=== PATIENT | male | born 1970 | race Caucasian/White ===

== ENCOUNTER 2019-10-23 08:30 | Outpatient (RCR) | payer BC, SELFPAY ==
[2019-09-23 14:52] VITALS: BP_SYST 140
--- NOTE | 2019-09-23 16:02 | PTOPEVAL ---
Thank you for referring this patient to [facility]. Please review, sign, date and return this plan of care NISH. Daniele seen for initial evaluation due to right shoulder pain. He requires additional skilled therapy to address increased pain, decreased shoulder strength and range and limited UE function with daily activities. Cont PT 2x/wk x 6 wk to improved impairments. I agree with and certify that the following plan of care is medically necessary. Referring Physician Date Attending Provider: Vipul Williamson MD Referring Provider: *PT Outpatient Evaluation Start: 09/23/19 14:49 Freq: Status: Active Protocol: Document 09/23/19 14:52 CAP (Rec: 09/23/19 15:59 CAP [email or web address]) Therapy Assessment Status Assessment Status Assessment Status Evaluation Outpatient Past Medical History Past Medical History Past Medical History Status Patient Denies Significant Past Medical History Evaluation Information Problem Diagnosis right shoulder pain Onset 08/13/19 Cause unknown injury Subjective Information Pt reports his shoulder Query Text:As Reported By Patient/ started bothering him at the Family start of the year. He reports increased shoulder pain when working. 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 Report right upper arm pain. REports difficulty with donning clothes, reaching overhead and reaching behind back. Reports he usually sleeps on left side, but if he sleeps on right side has increased soreness of right UE . He has previous therapy on his shoulder 10 year ago for RCT. He was able to improve range and strength without the need for surgery. Diagnostic Tests X-Rays For This Problem No Previous Treatments Previous Treatments For This Problem 10 years Prior Level of Function Activity Level (Last 3 Months) Hand Dominance Right Activity of Daily Living Ability Independent Indoor/Home Mobility Independent Community Mobility Independent Stairs Ability Independent Cooking No Cleaning No Almanzar
[2019-10-23 08:28] VITALS: BP_SYST 180
--- NOTE | 2019-10-23 08:55 | PTOPEVAL ---
Thank you for referring this patient to [facility]. Please review, sign, date and return this plan of care NISH. Pt was seen at our facility for 9 visits from 09/23/19-10/23/19 to address his right shoulder impairment. He has improved with shoulder motion, strength and UE function with daily activities. He has achieved most of his therapy goals. DC skilled therapy at this time with pt to continue with HEP. I agree with and certify that the following plan of care is medically necessary. Referring Physician Date Attending Provider: Vipul Williamson MD Referring Provider: *PT Outpatient Re-Evaluation/Discharge Start: 09/23/19 14:49 Freq: Status: Active Protocol: Document 10/23/19 08:28 CAP (Rec: 10/23/19 08:55 CAP [email or web address]) Outpatient Past Medical History Past Medical History Past Medical History Status Patient Denies Significant Past Medical History Evaluation Information Problem Diagnosis right shoulder pain Onset 08/13/19 Cause unknown injury Subjective Information Denies any pain with lifting Query Text:As Reported By Patient/ activities. Denies any Family problems with shoveling, lifting or increase UE force activities with [employer]. Reports improved ability to reach in all directions and donning/doffing clothes. Reports improve motion of the shoulder for reaching. Intermittent discomfort with sleeping depending on the right UE position. He is more aware of his posture with work activities and sitting. He changes his desk chair to assist with his shoulder position. Denies any problems with his HEP. Pain Assessment Timing of Pain Assessment Timing of Pain Assessment Re-assessment Pain Scale Pain Scale Used Numeric (1 - 10) Self Report Pain Assessment Right Shoulder(s) Reported Pain Level 0 Pain Description Soreness Pain Frequency Intermittent Current Pain Intensity 0 Greatest Pain Intensity 3 Pain Behaviors None Pain Score Pain Score 0: Self Report Upper Extremity Range of Motion Scapular/ Shoulder Range of Motion Right Scapular: Retraction Normal Scapular: Protraction Normal Scapular Downward Rotation Normal Scapular Upward Rotation
== END 2019-10-23 10:04 | disposition home or self-care (01) ==
LOC: ANHPT 08:30
PROVIDERS: PCP Family Medicine; Visit Provider Family Medicine
DX: M25.511 Pain in right shoulder (principal)
CPT/HCPCS: 97110; 97140; 97162

== ENCOUNTER 2019-10-29 00:55 | Day surgery (SDC) | payer BC, SELFPAY ==
[2019-10-24 11:00] VITALS: BMI 23.1
[2019-10-29] MEDS: LACTATED RINGERS 1,000 ML 150 ML IV CONT (08:55)
[2019-10-29 09:08] VITALS: BMI 22.6
[2019-10-29 09:10] VITALS: BP 114/77; PULSE 79; RESP 16; TEMP 36.8; O2SAT 98
--- NOTE | 2019-10-29 09:25 | WPDANESEPPF ---
Anes - Initial Pre Proc Eval Procedure: Operation Date: 10/29/19 09:30 Proposed Procedures p Screening Colonoscopy - Ezio Aguilar MD Date/Time: 10/29/19 09:25 Surgeon: Ezio Aguilar MD Pre Op Diagnosis: Neoplasm Screening Patient Data Age: 49 Gender: M Height: 6 ft 1 in Weight: 77.9 kg Last Vital Signs Temp 98.2 F 10/29/19 09:10 Pulse 79 10/29/19 09:10 Resp 16 10/29/19 09:10 BP 114/77 10/29/19 09:10 Pulse Ox 98 10/29/19 09:10 Allergies Allergy/AdvReac Type Severity Reaction Status Date / Time ibuprofen Allergy Unknown Nausea Verified 10/29/19 09:07 Home Medications Medication Instructions Recorded Confirmed Type No Home Medications 09/09/19 10/24/19 History Patient hx anesthesia problems: none Family hx anesthesia problems: none PMFSH Social History Social History Smoking status: Never smoker Alcohol intake: current Anes - Eval Final PreProcedure Day of Procedure 10/29/19 09:25 Patient weight: normal Heart: regular rate and rhythm Lungs: clear to auscultation Airway: Mallampati scale class II Neurological: alert and oriented Last oral intake: >/= 8 hours ASA classification: II Emergent: no Anesthetic plan: proceed Anesthesia type and monitoring: general GIVS and standard monitoring Informed Consent: The patient's anesthetic plan and its attendant risks and benefits were discussed with the patient/family/POA. Questions were solicited and answers provided to the satisfaction of the patient/family/POA.
[2019-10-29 09:52] VITALS: BP 99/67; PULSE 64; RESP 20; O2SAT 100
[2019-10-29 10:02] VITALS: BP 112/81; PULSE 76; RESP 18; O2SAT 100
[2019-10-29 10:12] VITALS: BP 115/82; PULSE 67; RESP 16; O2SAT 100
--- NOTE | 2019-10-31 10:16 | P.HP_ITS ---
History of Present Illness History of Present Illness Consent: Risks, benefits, and alternatives have been discussed and questions answered. Patient agrees to proceed with procedure. Chief complaint: Neoplasm Screening Narrative: Daniele Dahl is a 49 year old male referred for screening colonoscopy. [facility] Past Medical History Medical History Migraine, unspecified, not intractable, without status migrainosus Family History Family History Other Diabetes mellitus Family history of malignant neoplasm Hypertension Social History Social History Smoking status: Never smoker Alcohol intake: current Meds Home Medications and Allergies Home Medications Medication Instructions Recorded Confirmed Type No Home Medications 09/09/19 10/24/19 History Allergies Allergy/AdvReac Type Severity Reaction Status Date / Time ibuprofen Allergy Unknown Nausea Verified 10/29/19 09:07 Exam Resp: Auscultation: clear to auscultation bilaterally Cardio: Rate: regular rate Rhythm: regular rhythm GI: GI Palp: Yes Soft to palpation and No Tenderness to palpation present (GI) Assessment and Plan Assessment and plan (1) Screen for colon cancer: Code(s): Z12.11 - Encounter for screening for malignant neoplasm of colon Status: Acute Assessment and Plan: Colonoscopy with possible biopsy or polypectomy or cautery or injection of substances.
== END 2019-10-29 10:17 | disposition home or self-care (01) ==
PROVIDERS: PCP Family Medicine; Visit Provider Internal Medicine Gastroenterology
PROC: 0DJD8ZZ Inspection of Lower Intestinal Tract, Via Natural or Artificial Opening Endoscopic (ICD-10-PCS; CPT 45378; principal; 2019-10-29 09:30)
DX: Z12.11 Encounter for screening for malignant neoplasm of colon (principal); D12.8 Benign neoplasm of rectum; K57.30 Diverticulosis of large intestine without perforation or abscess without bleeding
CPT/HCPCS: 45385; 88305; J2704; J7120

== ENCOUNTER 2020-07-14 16:52 | Outpatient (CLI) | payer BC, SELFPAY ==
--- NOTE | ~2020-07-14 | XR_ITS ---
EXAMINATION: XR lumbar spine 2-3V DATE: 07/14/2020 17:11 INDICATION: Low back pain radiating down the right leg TECHNIQUE: Anteroposterior and lateral views of the lumbar spine, and cone-down lateral view of the l umbosacral junction were obtained. COMPARISON: None. FINDINGS: Minimal lumbar levocurvature. Vertebral body heights are normal. Mild disc height loss at L2-L3. José enitally small central canal and the mid to lower lumbar spine. Mild lumbar facet osteoarthritis. Sac rum and bilateral sacroiliac joints are normal. IMPRESSION: 1. 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 Reviewed, dictated and finalized at location A. [employer]
== END 2020-07-14 16:53 | disposition home or self-care (01) ==
PROVIDERS: PCP Family Medicine; Visit Provider Nurse Practitioner Family
DX: M47.896 Other spondylosis, lumbar region (principal)
CPT/HCPCS: 72100

== ENCOUNTER 2020-07-22 14:33 | Outpatient (CLI) | payer BC, SELFPAY ==
--- NOTE | ~2020-07-22 | MR_ITS ---
EXAMINATION: MR lumbar spine wo con DATE: 07/22/2020 15:37 INDICATION: Low back pain. TECHNIQUE: Magnetic resonance imaging (MRI) of the lumbar spine was performed without intravenous con trast. Sequences included sagittal T2-weighted FSE, sagittal T2-weighted FS FSE, sagittal T1-weighted FSE, and axial T2-weighted FSE. COMPARISON: Lumbar spine radiographs 07/14/2020, chest 2 views 02/06/2014 FINDINGS: There is 3 degrees levocurvature of lumbar spine. Vertebral body heights are normal. There is mildly decreased disc height at L2-L3. The distal spinal cord signal intensity is normal. The conu s medullaris is at L2. The following disc levels are specifically discussed: L1-L2: The disc does not extend beyond the endplate margin. There is no facet joint osteoarthritis. T here is no neural foraminal stenosis. There is no central canal stenosis. L2-L3: The disc does not extend beyond the endplate margin. There is mild bilateral facet joint osteo arthritis. There is no neural foraminal stenosis. There is no central canal stenosis. L3-L4: The disc does not extend beyond the endplate margin. There is mild bilateral facet joint osteo arthritis. There is no neural foraminal stenosis. There is no central canal stenosis. L4-L5: The disc is mildly bulging. There is mild bilateral facet joint osteoarthritis. There is mild bilateral neural foraminal stenosis. There is no central canal stenosis. L5-S1: The disc is mildly bulging and has an annular fissure. There is moderate bilateral facet joint osteoarthritis. There is mild bilateral neural foraminal stenosis. There is no central canal stenosi s. IMPRESSION: 1. Mild lumbar spondylosis. Reviewed, dictated and finalized at location B. [employer] SETTER IMPRESSION: 1. Mild lumbar spondylosis.
== END 2020-07-22 14:34 | disposition home or self-care (01) ==
PROVIDERS: PCP Family Medicine; Visit Provider Nurse Practitioner Family
DX: R20.0 Anesthesia of skin (principal); R20.2 Paresthesia of skin; M47.896 Other spondylosis, lumbar region
CPT/HCPCS: 72148

== ENCOUNTER 2020-09-16 07:30 | Outpatient (RCR) | payer BC, SELFPAY ==
--- NOTE | 2020-08-17 10:40 | PTOPEVAL ---
Thank you for referring Daniele Dahl to [facility].? The patient is scheduled to be seen for therapy? 1-2x/week for 4 weeks. Please review, sign, date and return this plan of care NISH. I agree with and certify that the following plan of care is medically necessary. Referring Physician Date Attending Provider: Vipul Williamson MD *PT Outpatient Evaluation Start: 08/17/20 09:32 Freq: Status: Active Protocol: Document 08/17/20 09:32 SEGUN (Rec: 08/17/20 10:21 SEGUN [email or web address]) Therapy Assessment Status Assessment Status Assessment Status Evaluation Outpatient Past Medical History Past Medical History Source of Past Medical History Patient,Recalled from Previous Visit, Confirmed with Patient /Family Neurological History Hx Migraine Yes Hx Other Neurological Disorders Yes: STRONG HEADACHES Cardiovascular History Hx Cardiac Disorders No Significant History Respiratory History Hx Respiratory Disorders No Significant History Gastrointestinal History Hx Gastrointestinal Disorders No Significant History Genitourinary History Hx Other Genitourinary Disorders Yes: KIDNEY INFECTION Musculoskeletal History Hx Back Pain Yes Hx Fractures Yes: NOSE, RIBS, FINGERS Hematological History Hx Hematological Disorders No Significant History Endocrine History Hx Endocrine Disorders No Significant History HEENT History Hx Ear Surgery Yes Integumentary History Hx Skin Disorders No Significant History Reproductive History Hx Reproductive Disorders No Significant History Psychosocial History Hx Psychiatric Disorders No Significant History Pain History History of Any Previous or Ongoing No Significant History Instance of Pain Anesthesia History Hx Anesthesia Reactions No Significant History Evaluation Information Problem Diagnosis back pain Onset Jul 2020 Cause prolonged position, lifting Subjective Information He had increased pain after a Query Text:As Reported By Patient/ long drive from [place]. Then Family the pain became worse when he was loading a load of grain when his back started to be painful. He was seen by a chiropractor with no relief of back pain. He had a MRI, back injection and pain medication. He has increased pain with prolonged sitting or lifting. Diagnostic Tests MRI For This Problem Yes: mild
--- NOTE | 2020-09-08 07:47 | PCPTNOTE ---
Patient called & cancelled scheduled appointment this date no reason given on the voicemail.
--- NOTE | 2020-09-16 08:09 | PCPTNOTE ---
Admitting Provider: Attending Provider: Vipul Williamson MD Patient:Daniele Dahl Date of :1970 Discharge Note Patient has received 4 therapy visits from 08/17/20 to 09/16/20 to address his back pain. He demonstrates normal pain free trunk motion, normal LE strength and motion, improve soft tissue restriction of back region, and ability to perform daily activities and work activities without limitations. He has achieved his therapy goals at this time. DC skilled therapy services at this time with pt to cont with his HEP. Thank you for referring this patient to [facility]. Please review, sign, date and return this discharge summary NISH. I have been updated about the patient's current status and I agree with discharge from the above service at this time. Referring Physician Date
== END 2020-09-16 12:41 | disposition home or self-care (01) ==
LOC: ANHPT 07:30
PROVIDERS: PCP Family Medicine; Visit Provider Family Medicine
DX: M54.5 Low back pain (principal); R20.0 Anesthesia of skin; R20.2 Paresthesia of skin
CPT/HCPCS: 97110; 97140; 97161